=== PATIENT | male | born 1990 | race Caucasian/White ===

== ENCOUNTER → 2021-07-26 | Outpatient (CLI) | payer OTHER ==
--- NOTE | 2021-07-26 13:11 | PFTRPT ---
Height: 66.00 Inches Weight: 195.00 Lbs BSA: 1.98 Diagnosis: R06.00 DATE: 07/26/2021 ORDERING PHYSICIAN: Felix George Pre and post bronchodilator studies have excellent technical quality. Forced vital capacity is normal. FEV1 is borderline in proportion. Obstructive index is therefore borderline as well. Expiratory limit of the flow-volume loop suggests some nonspecific limitation but no significant bronchodilator response is identified. Total lung capacity is normal. Residual volume is in proportion. Diffusing capacity is normal. No hemoglobin available for correction. Airway resistance and conductance are normal. IMPRESSION: Probably normal study. MTDD
== END ==
LOC: M CARPUL 12:30
DX: R06.02 Shortness of breath (principal); R06.2 Wheezing